=== PATIENT | female | born 1955 | race Caucasian/White ===

== ENCOUNTER 2022-07-19 14:16 | Emergency (ER) | payer MEDICARE, OTHER, SELFPAY ==
[2022-07-19 14:17] VITALS: BP 146/80; PULSE 91; RESP 18; TEMP 36.2; O2SAT 98; BMI 24.7
--- NOTE | 2022-07-19 14:59 | ED.VIS.GI ---
HPI HPI - GI History of Present Illness Chief Complaint: Constipation Informant: patient Narrative Narrative: 3 days ago patient had a hysterectomy and a bladder sling at , she has been taking narcotic pain medication every 6 hours as prescribed and has not been able to have a bowel movement. Now she feels extremely constipated, she needs to push out stool but is unable, and is unable to urinate right now too, she is having lower abdominal spasmic pain, no vomiting or fevers. Denies having any bleeding. PFSH PFS Surgical History (Updated 07/19/22 @ 14:42 by Wendy Lopez) H/O: hysterectomy Social History Smoking Status: Never smoker ROS ROS ED Constitutional Constitutional ED: Denies chills or fever(s) Eyes Eyes: Denies change in vision or diplopia ENT ENT ED: Denies rhinorrhea or sore throat Cardiovascular Cardiovascular: Denies chest pain or palpitations Respiratory/Chest Respiratory/Chest: Denies cough or dyspnea Gastrointestinal Gastrointestinal: Reports abdominal pain and constipation; Denies hematemesis, hematochezia, melena, nausea or vomiting Genitourinary Genitourinary ED: Denies dysuria or hematuria Musculoskeletal Musculoskeletal: Denies back pain or neck pain Integumentary Denies abscess or rash Neurologic Neurologic: Denies headache(s), paresthesias or weakness Psychiatric Psychiatric: Denies depression or suicidal thoughts EXAM Physical Exam Const Vital Signs: 07/19/22 14:17 Temperature 97.1 F L Temperature Source Temporal Pulse Rate 91 Respiratory Rate 18 Blood Pressure 146/80 H Blood Pressure Mean 102 Pulse Ox 98 Oxygen Delivery Method Room Air Positive well nourished and well developed Constitutional Narrative: Patient moaning in painful distress General Appearance ED: well developed HEENT Reports moist mucous membranes normocephalic and atraumatic Eyes PERRL and EOMs intact bilaterally Neck full ROM and supple Resp normal respiratory effort and clear to auscultation bilaterally Cardio regular rate, regular rhythm and no murmurs GI non-distended GI Narrative: Tender throughout lower abdomen. Voluntary guarding. Limited exam due to this. On rectal, patient has hard stool emanating from dilated anus without any bleeding or palpable abscess, unable to push stool out. Auscultation: normoactive bowel sounds Palpation: soft Back/Spine no CVA tenderness General Back: other FROM Extremity normal to inspection General Extremety ED: Negative for edema, pulses abnormal or tenderness General Extremity: Negative for edema or pulses abnormal Neuro oriented x3, CN's II-XII intact bilaterally and no sensory deficits noted Sensorium / Orientation: awake and alert Motor Exam: strength 5/5 throughout Psych Mood & Affect: anxious and tearful Skin no rashes or lesions noted and no wounds MDM MDM MDM Narrative Medical decision making narrative: Patient consented to manual disimpaction, I removed several large hard chunks of stool, emptying the rectal vault that I was able to access easily. Patient tolerated this well without complication or tearing/bleeding. Afterwards she was able to have more of a bowel movement on bedside commode, after an hour or so she was able to have an extremely large couple of bowel movements without blood. This enabled her to be able to urinate as well. She felt much better afterwards. Discharged home she already has MiraLAX to use as a stool softener, advised to try to limit how much narcotic she is taking. Discharge Plan Triage Chief Complaint: Constipation ED Provider: Alfred Tsai Dx/Rx/DC Orders Clinical Impression: Fecal retention Instructions: ED Constipation (Adult) Primary Care Provider: Maynor Rodríguez Referrals: Maynor Rodríguez MD [Primary Care Provider] - As Needed Activity Restrictions/Additional Instructions: Try to limit how much of the prescription pain medication you are taking since it can make you constipated, and continue to take stool softener/MiraLAX as directed. Disposition Disposition: Home, Self Care
--- NOTE | 2022-07-19 15:03 | ED.RN ---
LARGE AMOUNT LIQUID STOOL WITH MOD AMOUNT FIRM FORMED STOOL
== END 2022-07-19 16:52 | disposition home or self-care (01) ==
PROVIDERS: Emergency Provider Emergency Medicine; PCP Internal Medicine; Visit Provider Emergency Medicine
DX: K59.00 Constipation, unspecified (principal)
CPT/HCPCS: 99285